=== PATIENT | male | born 1985 | race Caucasian/White ===

== ENCOUNTER 2017-01-11 17:28 | Emergency (ER) | payer MEDICAID, OTHER, SELFPAY ==
[~2017-01-11] VITALS: Ht 180.3 cm; Wt 90.9 kg
[2017-01-11] MEDS ORDERED: PERCOCET 5MG/325MG TAB PO ONE (18:45)
[2017-01-11] MEDS ORDERED: TETANUS/DIPHTHERIA TOX ADSORB ADULT 0.5ML SYR/VIAL (90714) IM ONE (18:45)
[2017-01-11] MEDS ORDERED: ISOVUE-370 76% 100ML VIAL (Q9967) As Ordered ONE (19:06)
[2017-01-11] MEDS ORDERED: ADACEL/BOOSTRIX VACCINE (DIPHTH/PERTUSS/ACELL/TETANUS)0.5ML SYR (90715) IM ONE (19:30)
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
[2017-01-11] MEDS ORDERED: IBUP-1022 PO (20:57)
[2017-01-11 21:20] VITALS: BP 132/93
== END 2017-01-11 21:45 | disposition home or self-care (01) ==
LOC: M ED 17:28
DX: S80.11XA Contusion of right lower leg, initial encounter (principal); S30.1XXA Contusion of abdominal wall, initial encounter; V49.49XA Driver injured in collision with other motor vehicles in traffic accident, initial encounter; V03.10XA Pedestrian on foot injured in collision with car, pick-up truck or van in traffic accident, initial encounter; Y92.410 Unspecified street and highway as the place of occurrence of the external cause; Y93.89 Activity, other specified; Y99.8 Other external cause status; F12.20 Cannabis dependence, uncomplicated
CPT/HCPCS: 73590; 74177; 90471; 90715; 99284; Q9967

== ENCOUNTER 2021-11-22 18:19 | Emergency (ER) | payer OTHER, SELFPAY ==
[~2021-11-22] VITALS: Ht 180.3 cm; Wt 103.0 kg
[2021-11-22 18:19] VITALS: BP 131/73
[~2021-11-22 18:19] MED LIST: IBUP-1022 PO
[2021-11-22] MEDS ORDERED: LIDOCAINE 5% (LIDODERM) PATCH TD ONE (19:30)
[2021-11-22] MEDS ORDERED: KETOROLAC 30 MG/ML 1ML VIAL IM ONE (19:30)
[2021-11-22] MEDS ORDERED: CYCL5TAB PO (19:46)
[2021-11-22] MEDS ORDERED: CYCLOBENZAPRINE 5MG TABLET PO ONE (19:55)
[2021-11-22] MEDS ORDERED: **NOTE PATIENT COMMENT** MISC XX SCH (21:00)
== END 2021-11-22 19:57 | disposition home or self-care (01) ==
LOC: M ED 18:19
DX: M48.061 Spinal stenosis, lumbar region without neurogenic claudication (principal); I10 Essential (primary) hypertension; E78.5 Hyperlipidemia, unspecified; Z88.0 Allergy status to penicillin
CPT/HCPCS: 72110; 96372; 99282; J1885

== ENCOUNTER 2022-07-05 15:09 | Emergency (ER) | payer OTHER ==
[~2022-07-05] VITALS: Ht 180.3 cm; Wt 107.0 kg
[~2022-07-05 15:09] MED LIST changes: +CYCL5TAB PO
[2022-07-05] MEDS ORDERED: SILD50TA2 (15:23)
[2022-07-05] MEDS ORDERED: PARO30TA4 (15:23)
[2022-07-05] MEDS ORDERED: ATOR1TAB19 (15:23)
[2022-07-05] MEDS ORDERED: LISI20TA33 (15:23)
[2022-07-05] MEDS ORDERED: LIDOCAINE W/EPINEPHRINE 1% 20ML VIAL SC ONE (16:20)
[2022-07-05] MEDS ORDERED: DOXYCYCLINE HYCLATE 100MG TABLET PO ONE (17:10)
[2022-07-05] MEDS ORDERED: DOXY-443 PO (17:11)
[2022-07-05 17:20] VITALS: BP 136/98
== END 2022-07-05 17:25 | disposition home or self-care (01) ==
LOC: M ED 15:09
DX: L02.31 Cutaneous abscess of buttock (principal); I10 Essential (primary) hypertension; E78.5 Hyperlipidemia, unspecified; F17.200 Nicotine dependence, unspecified, uncomplicated; Z88.0 Allergy status to penicillin

== ENCOUNTER 2022-08-29 08:31 | Emergency (ER) | payer OTHER ==
[~2022-08-29] VITALS: Ht 180.3 cm; Wt 102.2 kg
[~2022-08-29 08:31] MED LIST changes: +ATOR1TAB19; +DOXY-443 PO; +LISI20TA33; +PARO30TA4; +SILD50TA2
[2022-08-29] MEDS ORDERED: NAPR-837 PO (12:25)
[2022-08-29 12:37] VITALS: BP 129/82; TEMP 98.3; O2SAT 98
== END 2022-08-29 12:39 | disposition home or self-care (01) ==
LOC: M ED 08:31
DX: M77.8 Other enthesopathies, not elsewhere classified (principal); I25.10 Atherosclerotic heart disease of native coronary artery without angina pectoris; Z88.0 Allergy status to penicillin; F17.200 Nicotine dependence, unspecified, uncomplicated

== ENCOUNTER 2022-11-29 02:08 | Emergency (ER) | payer OTHER ==
[~2022-11-29] VITALS: Ht 180.3 cm; Wt 104.4 kg
[~2022-11-29 02:08] MED LIST changes: +NAPR-837 PO
[2022-11-29] MEDS ORDERED: DOXYCYCLINE HYCLATE 100MG TABLET PO ONE (03:05)
[2022-11-29] MEDS ORDERED: DOXY-443 PO (03:09)
[2022-11-29 03:24] VITALS: BP 122/68; TEMP 98.1; O2SAT 99
== END 2022-11-29 03:26 | disposition home or self-care (01) ==
LOC: M ED 02:08
DX: S30.861A Insect bite (nonvenomous) of abdominal wall, initial encounter (principal); E78.5 Hyperlipidemia, unspecified; F17.200 Nicotine dependence, unspecified, uncomplicated; F10.10 Alcohol abuse, uncomplicated; Z88.0 Allergy status to penicillin; Z79.1 Long term (current) use of non-steroidal anti-inflammatories (NSAID); Z79.02 Long term (current) use of antithrombotics/antiplatelets; Z79.899 Other long term (current) drug therapy

== ENCOUNTER 2023-12-12 09:03 | Emergency (ER) | payer MEDICARE, OTHER, SELFPAY ==
[~2023-12-12] VITALS: Ht 180.3 cm; Wt 113.0 kg
[~2023-12-12 09:03] MED LIST changes: +DOXY-441 PO; -DOXY-443 PO
[2023-12-12] MEDS ORDERED: VENTAER INH (12:09)
[2023-12-12] MEDS ORDERED: BENZ200C70 PO (12:09)
[2023-12-12] MEDS ORDERED: DOXY-440 PO (12:09)
[2023-12-12 12:15] VITALS: BP 123/77; TEMP 99.7; O2SAT 95
== END 2023-12-12 12:28 | disposition home or self-care (01) ==
LOC: M ED 09:03
DX: J20.9 Acute bronchitis, unspecified (principal); Z11.52 Encounter for screening for COVID-19; Z88.0 Allergy status to penicillin; I10 Essential (primary) hypertension; E78.5 Hyperlipidemia, unspecified; F17.200 Nicotine dependence, unspecified, uncomplicated